=== PATIENT | female | born 1945 | race Caucasian/White ===

== ENCOUNTER 2020-11-01 13:02 | Outpatient (REF) | payer MEDICARE, OTHER, SELFPAY ==
[2020-11-01 14:00] LABS: Hematocrit 43.5 % (37-47); Hemoglobin 14.2 g/dl (12.0-16.0); Mean Corpuscular HGB Conc 32.6 g/dl (31.0-35.0); Mean Corpuscular Hemoglobin 32.1 pg (27.0-33.0); Mean Corpuscular Volume 98.4 fL (80-98); Mean Platelet Volume 9.8 fL (9.4-12.3); Platelet Count 246 X10*3/uL (160-400); Red Blood Count 4.42 X10*6/uL (4.20-5.50)
[2020-11-01 14:43] LABS: Alanine Aminotransferase 8 U/L (0-31); Albumin Level 4.3 g/dL (3.5-5.0); Alkaline Phosphatase 67 U/L (39-117); Anion Gap 13 (12-20); Aspartate Amino Transferase 17 U/L (5-31); Bilirubin Total 0.7 mg/dL (0.0-1.0); Blood Urea Nitrogen 17 mg/dL (9-16); Calcium 9.7 mg/dL (8.4-10.2); Carbon Dioxide 28 mmol/L (22-29); Chloride 104 mmol/L (96-108); Cholesterol 189 mg/dL; Estimated Glomerular Filt Rate > 60; Glucose Fasting 114 mg/dL (60-99); HDL Cholesterol 78 mg/dL; LDL Cholesterol Calculated 93 mg/dl; Potassium 4.3 mmol/L (3.3-5.1); Sodium 141 mmol/L (135-145); Total Protein 7.1 g/dL (6.5-8.0); Triglycerides 90 mg/dL
== END 2020-11-01 13:03 | disposition home or self-care (01) ==
LOC: HO.HMGCLDS 13:02
PROVIDERS: PCP Internal Medicine; Visit Provider Internal Medicine
DX: E66.01 Morbid (severe) obesity due to excess calories (principal); E78.5 Hyperlipidemia, unspecified; I10 Essential (primary) hypertension; I89.0 Lymphedema, not elsewhere classified
CPT/HCPCS: 36415; 80053; 80061; 84443; 85027

== ENCOUNTER 2020-12-08 11:13 | Outpatient (REF) | payer MEDICARE, OTHER, SELFPAY ==
[2020-12-08 12:19] LABS: Estimated Average Glucose 100 mg/dL; Hemoglobin A1c % 5.1 %
[2020-12-08 12:22] LABS: Anion Gap 12 (12-20); Blood Urea Nitrogen 20 mg/dL (9-16); Calcium 9.8 mg/dL (8.4-10.2); Carbon Dioxide 29 mmol/L (22-29); Chloride 106 mmol/L (96-108); Estimated Glomerular Filt Rate > 60; Glucose Random 112 mg/dL (60-115); Sodium 142 mmol/L (135-145)
== END 2020-12-08 11:14 | disposition home or self-care (01) ==
LOC: HO.LAB 11:13
PROVIDERS: PCP Internal Medicine; Visit Provider Internal Medicine
DX: E78.5 Hyperlipidemia, unspecified (principal); I10 Essential (primary) hypertension; R73.9 Hyperglycemia, unspecified
CPT/HCPCS: 36415; 80048; 83036

== ENCOUNTER 2021-11-12 11:56 | Outpatient (REF) | payer MEDICARE, OTHER, SELFPAY ==
[2021-11-12 13:13] LABS: MANUAL DIFF FLAG NO
[2021-11-12 13:31] LABS: Basophils Percent Auto 0.3 % (0-2); Eosinophils Absolute Auto 0.1 X10*3/uL (0.0-0.4); Eosinophils Percent Auto 1.1 % (0-4); Hematocrit 43.3 % (37.0-47.0); Imm Gran Abs Auto 0.02 X10*3/uL (0.00-0.03); Imm Gran Pct Auto 0.3 % (0.0-0.4); Lymphocytes Absolute Auto 2.2 X10*3/uL (1.2-4.9); Lymphocytes Percent Auto 32.8 % (20-40); Mean Corpuscular HGB Conc 32.3 g/dl (31.0-35.0); Mean Corpuscular Hemoglobin 32.3 pg (27.0-33.0); Mean Corpuscular Volume 99.8 fL (80.0-98.0); Mean Platelet Volume 10.2 fL (9.4-12.3); Monocytes Absolute Auto 0.5 X10*3/uL (0.1-1.2); Monocytes Percent Auto 6.8 % (2-11); Neutrophils Absolute Auto 3.9 x10*3/uL (2.0-8.3); Neutrophils Percent Auto 58.7 % (45-73); Platelet Count 237 X10*3/uL (160-400); Red Blood Count 4.34 X10*6/uL (4.20-5.50); Red Cell Distribution Width 13.2 % (11.0-16.0); White Blood Count 6.6 X10*3/uL (4.8-10.8)
[2021-11-12 13:41] LABS: Alanine Aminotransferase 11 U/L (0-31); Albumin Level 4.2 g/dL (3.5-5.0); Alkaline Phosphatase 56 U/L (39-117); Anion Gap 12 (12-20); Aspartate Amino Transferase 17 U/L (5-31); Bilirubin Total 0.8 mg/dL (0.0-1.0); Blood Urea Nitrogen 15 mg/dL (9-16); Calcium 9.6 mg/dL (8.4-10.2); Carbon Dioxide 28 mmol/L (22-29); Chloride 105 mmol/L (96-108); Cholesterol 201 mg/dL; Estimated Glomerular Filt Rate > 60; Glucose Fasting 105 mg/dL (60-99); HDL Cholesterol 83 mg/dL; LDL Cholesterol Calculated 100 mg/dl; Potassium 3.9 mmol/L (3.3-5.1); Sodium 141 mmol/L (135-145); Total Protein 7.1 g/dL (6.5-8.0); Triglycerides 90 mg/dL
[2021-11-12 13:45] LABS: Estimated Average Glucose 100 mg/dL; Hemoglobin A1c % 5.1 %
[2021-11-12 14:01] LABS: Vitamin D 25-OH Total 40.5 ng/mL (>30)
== END 2021-11-12 11:57 | disposition home or self-care (01) ==
LOC: HO.HMGCLDS 11:56
PROVIDERS: PCP Internal Medicine; Visit Provider Internal Medicine
DX: E78.5 Hyperlipidemia, unspecified (principal); I10 Essential (primary) hypertension; R73.9 Hyperglycemia, unspecified
CPT/HCPCS: 36415; 80053; 80061; 82306; 83036; 85025

== ENCOUNTER 2023-05-09 14:01 | Outpatient (AMB) | payer MEDICARE, OTHER, SELFPAY ==
[2023-05-09 14:02] VITALS: BP 126/78; PULSE 89; O2SAT 99; BMI 40.2
--- NOTE | 2023-05-09 14:02 | A.OFFPC_ITS ---
Vital Signs 05/09/23 14:02 Height 5 ft 1 in Weight 213 lb BMI 40.2 BP 126/78 Blood Pressure Location Lt radial Position Sitting Pulse 89 Pulse Source Pulse Oximeter Pulse Oximetry (%) 99 Oxygen Delivery Method Room Air Intake Visit Reasons: f/u htn Intake Note: Pt is here today for a follow up visit on HTN. Allergies codeine Allergy (Unknown, Verified 05/09/23 14:05) pt does not remember it was long time ago lisinopril Allergy (Unknown, Verified 05/09/23 14:05) cough sulfamethoxazole [From Bactrim] Allergy (Unknown, Verified 05/09/23 14:05) Rash trimethoprim [From Bactrim] Allergy (Unknown, Verified 05/09/23 14:05) Rash Medication List - Last Reconciled 05/09/23 by Kaelyn Walsh MD carvedilol 3.125 mg PO BID cholecalciferol (vitamin D3) 25 mcg PO DAILY furosemide 20 mg PO DAILY losartan 100 mg PO DAILY potassium chloride ER 10 mEq PO DAILY simvastatin 20 mg PO DAILY Tobacco use date assessed: 05/09/23 Fall risk assessment: No Falls in past year Last assessed Fall Risk: 05/09/23 Dental Screening Dental Screen Date: 05/09/23 Did you have a dental visit in the last 12 months?: No Did you have a dental problem in the last 6 months where you did not have access to dental care?: No Was dental information given to patient?: Patient declined HPI f/u htn HPI Details Patient presents for the follow-up on hypertension hyperlipidemia chronic lymphedema. She has been ambulating with a walker but rarely leaves her house. [facility] Medical History Hyperglycemia Lymphedema Morbid obesity Hyperlipidemia HTN (hypertension) Surgical History History of left hip replacement S/P cholecystectomy History of hysterectomy Family History Father No problems noted. Mother No problems noted. Social History Housing: Apartment Alcohol intake: current Alcohol intake frequency: does not drink Patient Tobacco Use Status: Never used Tobacco e-Cigarette/Vaping Use: Never Used Current occupational status: retired Cognitive needs: No Hearing needs: No Vision needs: Yes Questionnaire Thrive Questionnaire Date Thrive assessed: 11/27/22 XIMENA-7 AMB Questionnaire XIMENA-7 Date XIMENA - 7 assessed: 11/27/22 Source: Developed by Drs. Rojelio Rivero, Leanne Lara, Kofi Mosher and colleagues, with an educational giovani from [employer]. Review of Systems Const All systems reviewed & are unremarkable except as noted in HPI and below Reports no additional complaints Eyes Reports no additional complaints ENT Reports no additional complaints Card Reports no additional complaints Resp Reports no additional complaints GI Reports no additional complaints Reports no additional complaints Physical exam (Primary Care) Vital Signs: Last Vital Signs Pulse 89 05/09/23 14:02 BP 126/78 05/09/23 14:02 Pulse Ox 99 05/09/23 14:02 Oxygen Delivery Method Room Air 05/09/23 14:02 BMI result Body Mass Index 40.2 Tobacco/Smoking Status: Tobacco use Status Tobacco use date assessed 05/09/23 05/09/23 14:08 Patient Tobacco Use Status Never used Tobacco 05/09/23 14:08 e-Cigarette/Vaping Use Never Used 05/09/23 14:08 Thrive Assessment: Date of Thrive Assessment Date Thrive assessed 11/27/22 05/09/23 14:08 Const General: no acute distress HENMT Head: Yes normal to inspection Ears: hearing grossly normal bilaterally Mouth: Normal oral and palatal mucosa present Throat: Yes posterior oropharynx normal Neck Neck: Yes no lymphadenopathy and Yes supple Resp Effort & Inspection: normal respiratory effort Auscultation: clear to auscultation bilaterally Cardio Rhythm: regular rhythm Heart sounds: S1 normal heart sound present and S2 normal heart sound present GI Inspection: Yes normal to inspection Palpation (GI): Soft to palpation Percussion: Yes normal to percussion Auscultation: normal bowel sounds Extrem Other: 4 +nonpitting edema bilaterally Assessment and Plan Assessment & Plan (1) Hyperglycemia: Code(s): R73.9 - Hyperglycemia, unspecified Plan: Check A1c continue ADA diet (2) Lymphedema: Code(s): I89.0 - Lymphedema, not elsewhere classified Plan: Continue furosemide and compression stockings (3) Hyperlipidemia: Code(s): E78.5 - Hyperlipidemia, unspecified Plan: Continue statin check lipid profile today (4) HTN (hypertension): Code(s): I10 - Essential (primary) hypertension Plan: Continue current medications, return in 1 year or as needed Orders: Orders Comprehensive Met. Panel Today E78.5 - Hyperlipidemia, unspecified, I10 - Essential (primary) hypertension, I89.0 - Lymphedema, not elsewhere classified, R73.9 - Hyperglycemia, unspecified Complete Blood Count Auto Diff Today E78.5 - Hyperlipidemia, unspecified, I10 - Essential (primary) hypertension, I89.0 - Lymphedema, not elsewhere classified, R73.9 - Hyperglycemia, unspecified TSH reflex Free T4 Today E78.5 - Hyperlipidemia, unspecified, I10 - Essential (primary) hypertension, I89.0 - Lymphedema, not elsewhere classified, R73.9 - Hyperglycemia, unspecified Hemoglobin A1c Today E78.5 - Hyperlipidemia, unspecified, I10 - Essential (primary) hypertension, I89.0 - Lymphedema, not elsewhere classified, R73.9 - Hyperglycemia, unspecified Vitamin D 25-OH Total Today E78.5 - Hyperlipidemia, unspecified, I10 - Essential (primary) hypertension, I89.0 - Lymphedema, not elsewhere classified, R73.9 - Hyperglycemia, unspecified Lipid Panel Today E78.5 - Hyperlipidemia, unspecified, I10 - Essential (primary) hypertension, R73.9 - Hyperglycemia, unspecified Magnesium Today I10 - Essential (primary) hypertension Medications: Refilled carvedilol must administer with a meal/food 3.125 mg PO BID 180 tabs 3RF furosemide 20 mg PO DAILY 90 tabs 3RF losartan 100 mg PO DAILY 90 tabs 3RF I10 - Essential (primary) hypertension potassium chloride ER 10 mEq PO DAILY 90 tabs 3RF simvastatin 20 mg PO DAILY 90 tabs 3RF Coding Level of Care Code Est Pt Level 4 (24284) Diagnoses Hyperglycemia R73.9 Lymphedema I89.0 Hyperlipidemia E78.5 HTN (hypertension) I10
== END 2023-05-09 14:58 | disposition home or self-care (01) ==
PROVIDERS: PCP Internal Medicine; Visit Provider Internal Medicine
DX: R73.9 Hyperglycemia, unspecified (principal); E66.01 Morbid (severe) obesity due to excess calories; Z68.41 Body mass index [BMI] 40.0-44.9, adult; I89.0 Lymphedema, not elsewhere classified; E78.5 Hyperlipidemia, unspecified; I10 Essential (primary) hypertension
CPT/HCPCS: 99214

== ENCOUNTER 2023-05-09 14:34 | Outpatient (REF) | payer MEDICARE, OTHER, SELFPAY ==
[2023-05-09 15:51] LABS: MANUAL DIFF FLAG NO
[2023-05-09 16:09] LABS: Basophils Percent Auto 0.1 % (0-2); Eosinophils Absolute Auto 0.1 X10*3/uL (0.0-0.4); Eosinophils Percent Auto 0.9 % (0-4); Hematocrit 43.1 % (37.0-47.0); Hemoglobin 14.3 g/dl (12.0-16.0); Imm Gran Abs Auto 0.02 X10*3/uL (0.00-0.03); Imm Gran Pct Auto 0.3 % (0.0-0.4); Lymphocytes Absolute Auto 2.1 X10*3/uL (1.2-4.9); Lymphocytes Percent Auto 29.2 % (20-40); Mean Corpuscular HGB Conc 33.2 g/dl (31.0-35.0); Mean Corpuscular Hemoglobin 32.3 pg (27.0-33.0); Mean Corpuscular Volume 97.3 fL (80.0-98.0); Mean Platelet Volume 9.9 fL (9.4-12.3); Monocytes Absolute Auto 0.4 X10*3/uL (0.1-1.2); Monocytes Percent Auto 5.7 % (2-11); Neutrophils Absolute Auto 4.5 x10*3/uL (2.0-8.3); Neutrophils Percent Auto 63.8 % (45-73); Platelet Count 241 X10*3/uL (160-400); Red Blood Count 4.43 X10*6/uL (4.20-5.50); Red Cell Distribution Width 13.2 % (11.0-16.0)
[2023-05-09 16:25] LABS: Estimated Average Glucose 94 mg/dL; Hemoglobin A1c % 4.9 % (<6.0)
[2023-05-09 16:29] LABS: Alanine Aminotransferase 9 U/L (0-31); Albumin Level 4.3 g/dL (3.5-5.0); Alkaline Phosphatase 55 U/L (39-117); Anion Gap 14 (12-20); Aspartate Amino Transferase 17 U/L (5-31); Bilirubin Total 0.7 mg/dL (0.0-1.0); Blood Urea Nitrogen 16 mg/dL (9-16); Carbon Dioxide 25 mmol/L (22-29); Chloride 106 mmol/L (96-108); Cholesterol 196 mg/dL (<200); Estimated Glomerular Filt Rate > 60; Glucose Random 119 mg/dL (60-115); HDL Cholesterol 87 mg/dL (>40); LDL Cholesterol Calculated 94 mg/dL (<100); Potassium 3.7 mmol/L (3.3-5.1); Sodium 141 mmol/L (135-145); Total Protein 7.4 g/dL (6.5-8.0); Triglycerides 77 mg/dL (<150)
[2023-05-09 16:47] LABS: TSH reflex Free T4 2.63 uIU/mL (0.32-4.0); Vitamin D 25-OH Total 45.2 ng/mL (>30)
== END 2023-05-09 14:35 | disposition home or self-care (01) ==
LOC: HO.HMGCLDS 14:34
PROVIDERS: PCP Internal Medicine; Visit Provider Internal Medicine
DX: R73.9 Hyperglycemia, unspecified (principal); I89.0 Lymphedema, not elsewhere classified; E78.5 Hyperlipidemia, unspecified; I10 Essential (primary) hypertension
CPT/HCPCS: 36415; 80053; 80061; 82306; 83036; 83735; 84443; 85025

== ENCOUNTER 2024-04-16 13:13 | Outpatient (AMB) | payer MEDICARE, OTHER, SELFPAY ==
[2024-04-16 13:14] VITALS: BP 130/74; PULSE 88; O2SAT 98; BMI 41.8
--- NOTE | 2024-04-16 13:14 | MHC.PC.OV ---
Vital Signs 04/16/24 13:14 Height 5 ft 1 in Weight 221 lb BMI 41.8 BP 130/74 Blood Pressure Location Lt radial Position Sitting Pulse 88 Pulse Source Pulse Oximeter Pulse Oximetry (%) 98 Oxygen Delivery Method Room Air Intake Visit Reasons: f/u high blood pressure Intake Note: Pt is here today for a follow up visit. Allergies codeine Allergy (Unknown, Verified 04/16/24 13:17) pt does not remember it was long time ago lisinopril Allergy (Unknown, Verified 04/16/24 13:17) cough sulfamethoxazole [From Bactrim] Allergy (Unknown, Verified 04/16/24 13:17) Rash trimethoprim [From Bactrim] Allergy (Unknown, Verified 04/16/24 13:17) Rash Medication List - Last Reconciled 04/16/24 by Kaelyn Walsh MD carvedilol 3.125 mg PO BID cholecalciferol (vitamin D3) 25 mcg PO DAILY furosemide 20 mg PO DAILY losartan 100 mg PO DAILY potassium chloride ER 10 mEq PO DAILY simvastatin 20 mg PO DAILY Tobacco use date assessed: 04/16/24 Fall risk assessment: No Falls in past year Last assessed Fall Risk: 04/16/24 Dental Screening Dental Screen Date: 04/16/24 Did you have a dental visit in the last 12 months?: No Did you have a dental problem in the last 6 months where you did not have access to dental care?: No Was dental information given to patient?: Patient declined HPI f/u high blood pressure HPI Details Pt presents for HTN, HYPERLIPIDEMIA CHRONIC LOWER EXTREMITY LYMPHEDEMA. [facility] Medical History Hyperglycemia Lymphedema Morbid obesity Hyperlipidemia HTN (hypertension) Surgical History History of left hip replacement S/P cholecystectomy History of hysterectomy Family History Father No problems noted. Mother No problems noted. Social History Housing: Apartment Alcohol intake: current Alcohol intake frequency: does not drink Patient Tobacco Use Status: Never used Tobacco e-Cigarette/Vaping Use: Never Used service: No Current occupational status: retired Cognitive needs: No Hearing needs: No Vision needs: Yes Questionnaire PHQ-9 Over the last 2 weeks, how often have you been bothered by any of the following problems? 1. Little interest or pleasure in doing things: not at all 2. Feeling down, depressed, or hopeless: not at all 3. Trouble falling or staying asleep, or sleeping too much: more than half the days 4. Feeling tired or having little energy: several days 5. Poor appetite or overeating: not at all 6. Feeling bad about yourself - or that you are a failure or have let yourself or your family down: not at all 7. Trouble concentrating on things, such as reading the newspaper or watching television: not at all 8. Moving or speaking so slowly that other people could have noticed. Or the opposite - being so fidgety or restless that you have been moving around a lot more than usual: not at all 9. Thoughts that you would be better off or of hurting yourself in some way: not at all Total score: 3 Depression Screening Interpretation: Negative Depression Screening Done: Yes 05223 - PHQ-9 Billing: Yes Source: Developed by Drs. Rojelio Rivero, Leanne Lara, Kofi Mosher and colleagues, with an educational giovani from [employer]. Thrive Questionnaire Date Thrive assessed: 04/16/24 I am a: Patient What is your living situation today?: I have a steady place to live Within the past 12 months, did the food you bought not last and you didn't have the money to get more?: Never true THRIVE Score: 0 AUDIT C Alcohol Use Questionnaire (AUDIT-C) 1. How often do you have a drink containing alcohol?: Never 3. How often do you have six or more drinks on one occasion?: Never Total Score: 0 XIMENA-7 AMB Questionnaire XIMENA-7 Date XIMENA - 7 assessed: 04/16/24 Feeling nervous, anxious, or on edge: 1 = Several days Not being able to stop or control worryin = Several days Worrying too much about different things: 1 = Several days Trouble relaxin = Not at all Being so restless that it is hard to sit still: 0 = Not at all Becoming easily annoyed or irritable: 0 = Not at all Feeling afraid as if something awful might happen: 0 = Not at all Total XIMENA-7 score (0-4 normal; 5-9 mild; 10-14 moderate; 15-21 severe): 3 Source: Developed by Drs. Rojelio Rivero, Leanne Lara, Kofi Mosher and colleagues, with an educational giovani from [employer]. XIMENA-7 Assessment Billing XIMENA-7 Assessment Tool: XIMENA-7 Assessment 12517 Review of Systems Const All systems reviewed & are unremarkable except as noted in HPI and below Eyes Reports no additional complaints ENT Reports no additional complaints Card Reports no additional complaints Resp Reports no additional complaints GI Reports no additional complaints Reports no additional complaints Physical exam (Primary Care) Vital Signs: Last Vital Signs Pulse 88 04/16/24 13:14 BP 130/74 04/16/24 13:14 Pulse Ox 98 04/16/24 13:14 Oxygen Delivery Method Room Air 04/16/24 13:14 BMI result Body Mass Index 41.8 Tobacco/Smoking Status: Tobacco use Status Tobacco use date assessed 04/16/24 04/16/24 13:22 Patient Tobacco Use Status Never used Tobacco 04/16/24 13:22 e-Cigarette/Vaping Use Never Used 04/16/24 13:22 PHQ-9: PHQ-9 Score PHQ-9: Total score 3 04/16/24 13:22 Depression Screening Interpretation: Negative Thrive Assessment: Date of Thrive Assessment Date Thrive assessed 04/16/24 04/16/24 13:22 Const General: no acute distress Eyes General: appearance normal, both eyes and all related structures Neck Neck: Yes supple Resp Effort & Inspection: normal respiratory effort Auscultation: clear to auscultation bilaterally Cardio Rhythm: regular rhythm Heart sounds: S1 normal heart sound present and S2 normal heart sound present GI Inspection: Yes normal to inspection Palpation (GI): Soft to palpation Percussion: Yes normal to percussion Auscultation: normal bowel sounds Extrem Other: 4+ NONPITTING EDEMA BILATERALLY Coding Level of Care Code Est Pt Level 4 (10691) Diagnoses HTN (hypertension) I10 Hyperlipidemia E78.5 Morbid obesity E66.01 Hyperglycemia R73.9 Vitamin D deficiency E55.9 Additional Codes XIMENA-7 Assessment Billing - XIMENA-7 Assessment Tool: XIMENA-7 Assessment 37054 ([id number]) Assessment & Plan Assessment & Plan (1) HTN (hypertension): Code(s): I10 - Essential (primary) hypertension Category: Medical Plan: CONTINUE CURRENT MEDICATIONS (2) Hyperlipidemia: Code(s): E78.5 - Hyperlipidemia, unspecified Category: Medical Plan: Continue statin (3) Morbid obesity: Code(s): E66.01 - Morbid (severe) obesity due to excess calories Category: Medical Plan: Decreasing caloric intake and increasing physical activity discussed with the patient (4) Hyperglycemia: Code(s): R73.9 - Hyperglycemia, unspecified Category: Medical Plan: ADA diet and weight loss discussed with the patient check A1c (5) Vitamin D deficiency: Code(s): E55.9 - Vitamin D deficiency, unspecified Category: Medical Plan: Continue vitamin-D supplement Orders: Orders Comprehensive Met. Panel Today E55.9 - Vitamin D deficiency, unspecified, E66.01 - Morbid (severe) obesity due to excess calories, E78.5 - Hyperlipidemia, unspecified, I10 - Essential (primary) hypertension, R73.9 - Hyperglycemia, unspecified Hemoglobin A1c Today E55.9 - Vitamin D deficiency, unspecified, E66.01 - Morbid (severe) obesity due to excess calories, E78.5 - Hyperlipidemia, unspecified, I10 - Essential (primary) hypertension, R73.9 - Hyperglycemia, unspecified Vitamin D 25-OH Total Today E55.9 - Vitamin D deficiency, unspecified, E66.01 - Morbid (severe) obesity due to excess calories, E78.5 - Hyperlipidemia, unspecified, I10 - Essential (primary) hypertension, R73.9 - Hyperglycemia, unspecified Medications: Refilled furosemide 20 mg PO DAILY 90 tabs 3RF carvedilol must administer with a meal/food 3.125 mg PO BID 180 tabs 3RF losartan 100 mg PO DAILY 90 tabs 3RF I10 - Essential (primary) hypertension simvastatin 20 mg PO DAILY 90 tabs 3RF potassium chloride ER 10 mEq PO DAILY 90 tabs 3RF
== END 2024-04-16 14:13 | disposition home or self-care (01) ==
PROVIDERS: PCP Internal Medicine; Visit Provider Internal Medicine
DX: I10 Essential (primary) hypertension (principal); E78.5 Hyperlipidemia, unspecified; E66.813 Obesity, class 3; Z68.41 Body mass index [BMI] 40.0-44.9, adult; R73.9 Hyperglycemia, unspecified; E55.9 Vitamin D deficiency, unspecified

== ENCOUNTER → 2024-04-16 13:13 | Outpatient (BNVA) | payer MEDICARE, OTHER, SELFPAY | PROVIDERS: PCP Internal Medicine; Visit Provider Internal Medicine ==

== ENCOUNTER 2024-04-16 14:08 | Outpatient (REF) | payer MEDICARE, OTHER, SELFPAY ==
[2024-04-16 16:29] LABS: Estimated Average Glucose 97 mg/dL; Hemoglobin A1C 111.1977 umol/L; Total Hemoglobin (HGBA1C) 3585.5277 umol/L
[2024-04-16 16:34] LABS: Alanine Aminotransferase 8 U/L (0-31); Albumin Level 4.2 g/dL (3.5-5.0); Alkaline Phosphatase 58 U/L (39-117); Anion Gap 12 (12-20); Aspartate Amino Transferase 16 U/L (5-31); Bilirubin Total 0.8 mg/dL (0.0-1.0); Blood Urea Nitrogen 17 mg/dL (9-16); Calcium 10.2 mg/dL (8.4-10.2); Carbon Dioxide 28 mmol/L (22-29); Chloride 106 mmol/L (96-108); Estimated Glomerular Filt Rate > 60; Glucose Random 113 mg/dL (60-115); Potassium 3.8 mmol/L (3.3-5.1); Sodium 142 mmol/L (135-145); Total Protein 7.2 g/dL (6.5-8.0)
[2024-04-16 16:51] LABS: Vitamin D 25-OH Total 53.1 ng/mL (>30)
== END 2024-04-16 14:09 | disposition home or self-care (01) ==
LOC: HO.HMGCLDS 14:08
PROVIDERS: PCP Internal Medicine; Visit Provider Internal Medicine
DX: I10 Essential (primary) hypertension (principal); E78.5 Hyperlipidemia, unspecified; E66.01 Morbid (severe) obesity due to excess calories; Z68.41 Body mass index [BMI] 40.0-44.9, adult; R73.9 Hyperglycemia, unspecified; E55.9 Vitamin D deficiency, unspecified; Z71.3 Dietary counseling and surveillance
CPT/HCPCS: 36415; 80053; 82306; 83036; 96127; 99212